=== PATIENT | male | born 1985 | race Asian ===

== ENCOUNTER 2018-07-23 06:49 | Day surgery (SDC) | payer BC ==
[2018-07-20 11:11] VITALS: BMI 25.0
[2018-07-23] MEDS ORDERED: CEFAZOLIN 2 GM/50 ML BAG ONE (07:24)
[2018-07-23] MEDS ORDERED: Fentanyl 100 MCG/2 ML VIAL ONE ×2 (07:51→09:30)
[2018-07-23] MEDS ORDERED: Midazolam HCl 2 mg/2 ml Vial ONE ×2 (07:51→09:30)
[2018-07-23] MEDS ORDERED: Zolpidem Tartrate 5 MG TAB PO PRN (08:03)
[2018-07-23] MEDS ORDERED: Ketorolac Tromethamine 30 MG/ML VIAL IVP PRN (08:03)
[2018-07-23] MEDS ORDERED: traMADol HCl 50 MG TAB PO PRN ×2 (08:03)
[2018-07-23] MEDS ORDERED: Ondansetron PF 4 MG/2 ML Vial IVP PRN (08:03)
[2018-07-23] MEDS ORDERED: Ropivacaine 0.2% 550 ML 550 ML NERVE BLCK SCH (08:03)
[2018-07-23] MEDS ORDERED: HYDROcodone/Acetaminophen 10/325 mg Tablet PO PRN ×2 (08:03)
[2018-07-23] MEDS ORDERED: Promethazine HCl 25 MG/ML VIAL IM PRN (08:03)
[2018-07-23] MEDS ORDERED: Fentanyl 100 MCG/2 ML VIAL SLOW IVP PRN (08:04)
[2018-07-23] MEDS ORDERED: Bupivacaine HCl 0.5%/Epinephrine 1:200,000/PF 30 ml Vial ONE (09:46)
--- NOTE | 2018-07-23 14:25 | OP ---
DATE OF PROCEDURE: 07/23/2018 PREOPERATIVE DIAGNOSIS: Left shoulder SLAP tear with unstable biceps tendon. POSTOPERATIVE DIAGNOSES: 1. Left shoulder SLAP tear with unstable biceps tendon. 2. Partial undersurface tear, rotator cuff. 3. Impingement syndrome. PROCEDURES PERFORMED: 1. Left shoulder arthroscopy with debridement of partial rotator cuff tear as well as a labral tear. 2. Subacromial decompression. 3. Open biceps tenodesis. BLOOD LOSS: Approximately 30 mL. ONCOLOGY NURSE: Russel Hill PA-C. ANESTHESIA: The patient did have a general anesthetic as well as a block. IMPLANTS: An Arthrex 7 x 23 Bio[employer]posite bio tenodesis screw. COMPLICATIONS: There were no other complications. DISPOSITION: He did go to recovery room in stable condition. INDICATIONS: This is a 32-year-old active male, who has had shoulder pain for approximately a year. He has failed to get relief by nonoperative means, at this time opted to have surgery. Description of Procedure: After all appropriate consent forms were explained and signed, he was taken back to the operative room and this time was given general anesthetic. Once the level of anesthesia was appropriate, he was rolled into the right lateral decubitus position with all bony problems well padded. Axillary roll was placed underneath the right axilla. Beanbag was inflated to hold him in this position, and all bony prominences were well padded. The arm was taken through full range of motion and then suspended with 12 pounds in standard fashion. The left shoulder and upper extremity were then prepped and draped in standard surgical fashion. Bony anatomical landmarks were drawn out and the subacromial space was infiltrated Marcaine with epinephrine. Posterior portal was established and the scope was placed into the shoulder joint. Anterior portal was made using a needle localization technique. Diagnostic arthroscopy commenced. There was a tear in the superior sling off the top part of subscapularis. There was also a partial articular sided tear of the supraspinatus. Both of these leading to biceps instability. There was significant SLAP tear of the superior labrum and then also was a portion of this tear extending into the biceps tendon itself at the root. The articular surface of the humeral head and glenoid were in good condition. No loose bodies were noted in the axillary pouch. At this time, the shaver was used and introduced to debride the aforementioned structures back to stable base. At this time, I did place a green cannula through the anterior portal and using an 18- gauge needle and placed a suture through the biceps tendon. Arthroscopic scissors were then used to cut the tendon off the superior labrum. At this time, this area was debrided. We then turned our attention to the subacromial space. The scope was repositioned. Lateral working portal was made and the bursa was removed. The SERFAS energy as well as the shaver was then used to perform small bony decompression of the subacromial space. The rotator cuff was evaluated and found to be intact. At this time, the scope was removed and the shoulder was drained. A 15 blade was used to make an incision next to where the biceps suture was placed, down through skin. Bovie was used to coagulate any brisk venous bleeding. Deltoid fascia was then sharply opened and the deltoid fibers were dissected in line to get down to the underlying humerus in the transverse humeral ligament. At this time , this was opened up and the biceps tendon was pulled out into the wound. There was a copious amount of scarring in the bicipital groove as well as significant amount of synovitic changes. All this was removed with the Bovie and scissors. Once this area had been cleaned out, we went ahead and turned our attention to performing a biceps tenodesis. The tendon was sutured. The intra-articular portion was removed, and at this time, a pin was placed. A 7 mm reamer was used to ream to a depth of 25, and a 7 x 23 mm Bio[employer]posite bio tenodesis screw was then placed in standard fashion to fixate our tendon. Sutures were tied over top of this, so that the screw could not back out. Once this was done, we thoroughly irrigated and dried our wound. Hemostasis was fully achieved. We then allowed the deltoid to fall upon itself. A running Vicryl was used to close the deltoid fascia, 0Vicryl and nylon sutures were used to close this incision as well as our portals. Bulky sterile dressing was applied. The patient was then awakened. He was taken to recovery room in stable condition. All counts were correct at the end of the case and he received preoperative IV antibiotics. Job ID: [id number] [facility]
[2018-07-23] MEDS ORDERED: Ropivacaine 0.5% HCl/PF (150 MG/30 ML VIAL) ONE (15:11)
[2018-07-23] MEDS ORDERED: Ropivacaine 0.2% HCl/PF (40 MG/20 ML VIAL) ONE (15:11)
[2018-07-23] MEDS ORDERED: Ondansetron PF 4 MG/2 ML Vial ONE (15:34)
[2018-07-23] MEDS ORDERED: Glycopyrrolate 0.2 MG/ML 5 ML SYRINGE ONE (15:34)
[2018-07-23] MEDS ORDERED: Lidocaine 1% PF 5 ML VIAL ONE (15:34)
[2018-07-23] MEDS ORDERED: Rocuronium Bromide 10 MG/ML (10ML VIAL) ONE (15:34)
[2018-07-23] MEDS ORDERED: PROPOFOL 200 MG/20 ML VIAL ONE (15:34)
== END 2018-07-23 14:55 | disposition home or self-care (01) ==
LOC: SDC 06:49
PROVIDERS: ATTEND Orthopaedic Surgery
PROC: 0LS20ZZ Reposition Left Shoulder Tendon, Open Approach (ICD-10-PCS; principal; 2018-07-23)
PROC: 0RBK4ZZ Excision of Left Shoulder Joint, Percutaneous Endoscopic Approach (ICD-10-PCS; principal; 2018-07-23)
DX: M75.112 Incomplete rotator cuff tear or rupture of left shoulder, not specified as traumatic (principal); S43.432A Superior glenoid labrum lesion of left shoulder, initial encounter; M75.42 Impingement syndrome of left shoulder
CPT/HCPCS: A4306; C1713; J0670; J2250; J2795; J3010

== ENCOUNTER 2021-05-04 15:08 | Outpatient (CLI) | payer BC ==
[2021-05-04 16:46] LABS: #Eosinphils 0.1 10x3/uL (0.0-0.5); #Monocytes 0.6 10x3/uL (0.0-1.1); #Neutrophils 4.6 10x3/uL (1.5-8.4); %Basophils 0.5 % (0.0-2.0); %Eosinophils 1.7 % (0.0-6.0); %Lymphocytes 29.2 % (18.0-47.0); %Monocytes 7.4 % (0.0-10.0); %Neutrophils 60.9 % (40.0-75.0); Hemoglobin 14.4 g/dL (13.5-17.5); Mean Corpuscular HGB CONC 34.1 g/dL (32.0-36.0); Mean Corpuscular Hemoglobin 30.8 pg (27.0-33.0); Mean Corpuscular Volume 90.4 fl (81.2-95.1); Mean Platelet Volume 9.6 fl (7.4-10.4); Platelet Count 264 10x3/uL (150-450); RBC Distribution Width 12.1 % (11.5-14.5); Red Blood Cell (RBC) Count 4.67 10x6/uL (4.32-5.72); White Blood Cell (WBC) Count 7.6 10x3/uL (3.5-10.5)
[2021-05-05 11:06] LABS: SARS-CoV-2 PCR by NAA Not Detected (NotDetected)
== END 2021-05-04 15:09 | disposition home or self-care (01) ==
LOC: LABBT 15:08
PROVIDERS: ATTEND Orthopaedic Surgery
DX: Z01.812 Encounter for preprocedural laboratory examination (principal); M75.101 Unspecified rotator cuff tear or rupture of right shoulder, not specified as traumatic; S43.431A Superior glenoid labrum lesion of right shoulder, initial encounter; Z20.822 Contact with and (suspected) exposure to COVID-19
CPT/HCPCS: 85025; U0003; U0005

== ENCOUNTER 2021-05-07 09:27 | Day surgery (SDC) | payer BC ==
[2021-05-05 14:19] VITALS: BMI 25.0
[2021-05-07] MEDS ORDERED: Fentanyl 100 MCG/2 ML VIAL ONE ×2 (11:08→12:27)
[2021-05-07] MEDS ORDERED: Lidocaine 1% PF 5 ML VIAL ONE (11:08)
[2021-05-07] MEDS ORDERED: Midazolam HCl 2 mg/2 ml Vial ONE (11:08)
[2021-05-07] MEDS ORDERED: ceFAZolin 2 GM/DEX 5% 100 ML BAG ONE (11:48)
[2021-05-07] MEDS ORDERED: Lidocaine 1% w/Epinephrine 1:100K 20 ML VIAL ONE (12:30)
== END 2021-05-07 17:27 | disposition home or self-care (01) ==
LOC: SDC 09:27
PROVIDERS: ATTEND Orthopaedic Surgery
DX: S43.431A Superior glenoid labrum lesion of right shoulder, initial encounter (principal); M75.111 Incomplete rotator cuff tear or rupture of right shoulder, not specified as traumatic; Z98.890 Other specified postprocedural states; Z79.890 Hormone replacement therapy; Z79.899 Other long term (current) drug therapy; X58.XXXA Exposure to other specified factors, initial encounter
CPT/HCPCS: C1713; J2250; J3010